=== PATIENT | male | born 1990 | race Caucasian/White ===

== ENCOUNTER 2018-08-12 13:16 | Observation (INO) ==
--- NOTE | 2018-08-12 13:29 | ED ---
HPI General Chief Complaint: Chest Pain Stated Complaint: Medical Time Seen by Provider: 08/12/18 13:21 Source: patient Mode of arrival: EMS Limitations: no limitations History of Present Illness 28-year-old male presents by ambulance after he was working outside at a [employer] with his job. He got lightheaded and short of breath and when he sat down in the truck he felt like he was about to pass out but did not lose consciousness. He denies any pain or other complaints at this time. He denies prior history of this. He denies specific modifying factors. Onset (ago): minute(s) Context: Reports occurred during exertion Associated symptoms: Reports denies other symptoms Related Data Home Medications Medication Instructions Recorded Confirmed No Known Home Medications 08/12/18 08/12/18 Allergies Allergy/AdvReac Type Severity Reaction Status Date / Time No Known Allergies Allergy Verified 08/12/18 13:19 Review of Systems ROS: all other systems reviewed are negative [facility] Medical History Medical History Patient denies medical problems (Acute) Surgical History Surgical History No history of previous surgery (Acute) Social History Social History Substance History: No History of Abuse Smoking Status: Never smoker How Often Do You Have a Drink Containing Alcohol: Never Recent Travel in [facility] within the Last 8 Weeks: No Recent Out of Country Travel within the Last 8 Weeks: No Immunization History Tetanus Immunization: <5 Years Exam Narrative Exam Narrative: GENERAL: 28 y/o male in no apparent distress SKIN: Focused skin assessment warm/dry. HEAD: Atraumatic. Normocephalic. EYES: Pupils equal and round. No scleral icterus. No injection or drainage. ENT: No nasal bleeding or discharge. Mucous membranes pink and moist. NECK: Trachea midline. No JVD. CARDIOVASCULAR: Regular rate and rhythm. RESPIRATORY: No accessory muscle use. Clear to auscultation. Breath sounds equal bilaterally. GASTROINTESTINAL: Abdomen soft, non-tender, nondistended. MUSCULOSKELETAL: No obvious deformities. No clubbing. No cyanosis. No edema. NEUROLOGICAL: Awake and alert. No obvious cranial nerve deficits. Motor grossly within normal limits. Normal speech. PSYCHIATRIC: Appropriate mood and affect; insight and judgment normal. Course Reevaluation(s) Reevaluation #1: On recheck patient states he is starting to feel better. Episode was likely related to exertion in the heat but given second episode while he was in air conditioning where he got short of breath and felt lightheaded, offered chest pain center observation for further cardiac workup and he agrees to this plan of care. No active chest pain. Initial Documented Vital Signs Pulse Rate 97 H 08/12/18 13:19 Respiratory Rate 14 08/12/18 13:19 Blood Pressure 178/77 H 08/12/18 13:19 Pulse Oximetry 97 08/12/18 13:19 Last Documented Vital Signs Pulse Rate 100 H 08/12/18 13:30 Respiratory Rate 17 08/12/18 13:30 Blood Pressure 145/56 H 08/12/18 13:30 Pulse Oximetry 95 08/12/18 13:30 Medical Decision Making MDM Narrative Medical decision making narrative: Patient arrived with stable vitals with near syncopal episode. EKG shows mild ST elevation anteriorly so we will check further testing although this could be early repolarization and clinically monitor. No active chest pain Medical Screen Exam Complete: Yes Emergency Medical Condition: Yes Differential Diagnosis Differential Diagnosis: Vasovagal, anemia, renal failure, PE, heat exhaustion Lab Data Result diagrams: 08/12/18 13:26 08/12/18 13:26 Lab Results 08/12/18 08/12/18 08/12/18 Range/Units 13:26 13:26 13:26 WBC 7.8 (4.0-11.0) th/mm3 RBC 5.18 (4.50-5.90) mil/mm3 Hgb 16.2 (13.0-17.0) gm/dL Hct 48.2 (39.0-51.0) % MCV 93.0 (80.0-100.0) fL MCH 31.3 (27.0-34.0) pg MCHC 33.6 (32.0-36.0) % RDW 12.8 (11.6-17.2) % Plt Count 207 (150-450) th/mm3 MPV 8.1 (7.0-11.0) fL Neut % (Auto) 57.0 (16.0-70.0) % Lymph % (Auto) 31.4 (9.0-44.0) % [place] % (Auto) 10.0 H (0.0-8.0) % Eos % (Auto) 1.1 (0.0-4.0) % Baso % (Auto) 0.5 (0.0-2.0) % Neut # (Auto) 4.4 (1.8-7.7) th/mm3 Lymph # (Auto) 2.4 (1.0-4.8) th/mm3 [place] # (Auto) 0.8 (0.0-0.9) th/mm3 Eos # (Auto) 0.1 (0.0-0.4) th/mm3 Baso # (Auto) 0.0 (0.0-0.2) th/mm3 WBC Differential . Differential Comment Auto diff final PT 10.5 (9.8-11.6) sec INR 1.0 Ratio APTT 20.3 L (24.3-30.1) sec D-Dimer Quant (PE/DVT) 0.27 (0.00-0.50) mg/L FEU Sodium 142 (136-145) meq/L Potassium 4.2 (3.5-5.1) meq/L Chloride 109 H (98-107) meq/L Carbon Dioxide 20.1 L (21.0-32.0) meq/L Anion Gap 13 (5-15) meq/L BUN 19 H (7-18) mg/dL Creatinine 1.29 (0.60-1.30) mg/dL Estimated GFR 65 L (>89) mL/min Random Glucose 114 H (74-106) mg/dL Calcium 8.3 L (8.5-10.1) mg/dL Magnesium 2.6 H (1.5-2.5) mg/dL Total Bilirubin 0.8 (0.2-1.0) mg/dL AST 36 (15-37) U/L ALT 65 (12-78) U/L Alkaline Phosphatase 38 L (45-117) U/L Total Creatine Kinase 135 (39-308) U/L CK-MB (CK-2) Less than 1.0 (0.5-3.6) ng/mL Troponin I Less than 0.02 L (0.02-0.05) ng/mL Total Protein 7.0 (6.4-8.2) g/dL Albumin 3.6 (3.4-5.0) g/dL Imaging Data Radiologist's impression: Chest X-Ray 08/12/18 13:22 CONCLUSION: Negative examination. Discharge Plan Discharge Disposition Patient Disposition: 28 Still Patient Discharge Details Diagnosis: Near syncope Physicians Team ED Provider: Kelli Solis Primary Care Provider: Luis Eduardo Ogden Attending Provider: Wyatt Galvez ED Status: Admitted Observation Patient
[2018-08-12] MEDS ORDERED: Sod Chloride 0.9% Inj 1,000 ML IV.CONT SCH (13:30)
[2018-08-12 13:39] LABS: Baso % (Auto) 0.5 % (0.0-2.0); Eos # (Auto) 0.1 th/mm3 (0.0-0.4); Eos % (Auto) 1.1 % (0.0-4.0); Hematocrit 48.2 % (39.0-51.0); Hemoglobin 16.2 gm/dL (13.0-17.0); Lymph # (Auto) 2.4 th/mm3 (1.0-4.8); Lymph % (Auto) 31.4 % (9.0-44.0); Mean Corpuscular HGB Conc 33.6 % (32.0-36.0); Mean Corpuscular Hemoglobin 31.3 pg (27.0-34.0); Mean Platelet Volume 8.1 fL (7.0-11.0); Mono # (Auto) 0.8 th/mm3 (0.0-0.9); Neut # (Auto) 4.4 th/mm3 (1.8-7.7); Platelet Count 207 th/mm3 (150-450); Red Blood Count 5.18 mil/mm3 (4.50-5.90); Red Cell Distribution Width 12.8 % (11.6-17.2); White Blood Count 7.8 th/mm3 (4.0-11.0)
--- NOTE | 2018-08-12 13:49 | XR ---
EXAM DATE: 08/12/2018 1:22 PM EDT AGE/SEX: 28 years / Male INDICATIONS: Patient had syncopal episode at work. CLINICAL DATA: This is the patient's initial encounter. Patient reports that signs and symptoms have been present for 1 day and indicates a pain score of 3/10. MEDICAL/SURGICAL HISTORY: None. None. COMPARISON: No prior exams available for comparison. FINDINGS: A single AP view of the chest demonstrates the lungs to be symmetrically aerated without evidence of mass, infiltrate or effusion. The cardiomediastinal contours are unremarkable. Osseous structures a re intact. CONCLUSION: Negative examination. Electronically signed by: Usha Ch MD 08/12/2018 1:47 PM EDT
[2018-08-12 13:55] LABS: Alanine Aminotransferase 65 U/L (12-78); Albumin 3.6 g/dL (3.4-5.0); Anion Gap 13 meq/L (5-15); Aspartate Aminotransferase 36 U/L (15-37); Blood Urea Nitrogen 19 mg/dL (7-18); Calcium 8.3 mg/dL (8.5-10.1); Carbon Dioxide 20.1 meq/L (21.0-32.0); Chloride 109 meq/L (98-107); Glomerular Filtration Rate 65 mL/min (>89); Glucose,Random 114 mg/dL (74-106); Magnesium 2.6 mg/dL (1.5-2.5); Sodium 142 meq/L (136-145)
[2018-08-12 13:56] LABS: Potassium 4.2 meq/L (3.5-5.1)
[2018-08-12 14:02] LABS: D-Dimer 0.27 mg/L FEU (0.00-0.50); Prothrombin Time 10.5 sec (9.8-11.6)
[2018-08-12 14:03] LABS: Activated Partial Thrombo Time 20.3 sec (24.3-30.1)
[2018-08-12 14:17] LABS: Alkaline Phosphatase 38 U/L (45-117); Creatine Kinase 135 U/L (39-308)
[2018-08-12] MEDS ORDERED: Acetaminophen 500 MG Tablet PO PRN (15:02)
--- NOTE | 2018-08-12 15:33 | P.HPCA ---
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 States they were pulling a fire truck with a rope. He did this 2 times back to back. Denied having any symptoms at the time. But shortly after he sat in a truck and then had a sudden onset sensation of feeling lightheaded, nauseous, diaphoretic and felt hard to breathe but not truly short of breath. States symptoms not last long. He was advised to come to ED for evaluation by her coworkers. He denies prior history of CAD. States is a non-smoker. Denies any type of discomforts. Specifically denies having any type of chest discomfort. Denies hypertension, hyperlipidemia, diabetes, and CAD. Lifetime non-smoker. Lifetime non-smoker. Rarely has alcohol. Occasional alcohol. Denies illicit drug use. Denies any family history of CAD. - Diagnosis (1) Lightheadedness Review of Systems General: Patient denies fevers, chills, and recent travel. HEENT: Patient denies headache, sore throat, difficulty swallowing. Cardiovascular: Has the chest discomfort as mentioned above. Denies sensation of heart beating rapidly or irregularly. No syncope. He was diaphoretic. He felt lightheaded. Respiratory: Denies actual short of breath but states it felt a little hard to breathe briefly. Denies inspirational chest discomfort. Denies coughing wheezing or hemoptysis. GI: He was nauseous. Patient denies vomiting, diarrhea, abdominal pain, bloody stools. Musculoskeletal: Patient denies joint pain or edema. Denies calf pain or edema. Neurovascular: Patient denies numbness, tingling, weakness in extremities. Denies headache. Endocrine: Denies polyuria and polydipsia. Hematologic: Denies easy bruising. Skin: Denies rash or itching. PMFSH - History History Provided By: Patient - Medical History Medical History: Medical History (Last Reviewed 08/12/18 @ 13:28 by Kelli Solis MD) Patient denies medical problems - Surgical History Surgical History: Surgical History (Last Reviewed 08/12/18 @ 13:28 by Kelli Solis MD) No history of previous surgery - Tobacco History Smoking Status: Never smoker - Alcohol History How Often Do You Have a Drink Containing Alcohol: Never - Substance Use History Substance History: No History of Abuse - Travel History Recent Travel in the [place] Within the Last 8 Weeks: No Recent Travel Out of the Country Within the Last 8 Weeks: No - Immunization History Tetanus Immunization: <5 Years Medications and Allergies Active Medications: Active Medications Acetaminophen (Tylenol) 500 mg PO Q6H PRN PRN Reason: pain scale 1-5 Hydrocodone Bitart/Acetaminophen ([place] 7.5/325) 1 tab PO Q6H PRN PRN Reason: pain scale 6-10 Aspirin (Aspirin) 325 mg PO DAILY ROMAN Clonidine HCl (Catapres) 0.1 mg PO Q6H PRN PRN Reason: SBP >165 OR DBP > 110 Sodium Chloride (Ns Inj) 1,000 mls @ 125 mls/hr IV.CONT .Q8H ROMAN Stop: 08/12/18 21:29 Last Admin: 08/12/18 13:30 Dose: 125 mls/hr Ondansetron HCl (Zofran Inj) 4 mg IV.PUSH Q6H PRN PRN Reason: NAUSEA Pantoprazole Sodium (Protonix) 40 mg PO DAILY ROMAN Sodium Chloride (Ns Flush) 2 ml IV.FLUSH BID ROMAN Sodium Chloride (Ns Flush) 2 ml IV.FLUSH PRN PRN PRN Reason: FLUSH AFTER USING IV ACCESS Allergies Allergy/AdvReac Type Severity Reaction Status Date / Time No Known Allergies Allergy Verified 08/12/18 13:19 Home Medications Medication Instructions Recorded Confirmed Type No Known Home Medications 08/12/18 08/12/18 History Exam Vital signs: Vital Signs 08/12/18 13:19 08/12/18 13:30 Pulse Rate 97 H 100 H Respiratory Rate 14 17 Blood Pressure 178/77 H 145/56 H Pulse Oximetry 97 95 Narrative: GENERAL: This is a well-nourished, well-developed patient, in no apparent distress. Patient speaks in clear complete sentences. Patient is pleasant. HEENT: Head is atraumatic and normocephalic. Neck is supple without lymphadenopathy and trachea is midline. No JVD or carotid bruits. CARDIOVASCULAR: Regular rate and rhythm without murmurs, gallops, or rubs. RESPIRATORY: Clear to auscultation. Breath sounds equal bilaterally. No wheezes , rales, or rhonchi. Chest wall is nontender. No use of accessory muscles. GASTROINTESTINAL: Abdomen is nontender, nondistended. Abdomen soft. No obvious pulsatile mass or bruit. No CVA tenderness. Strong femoral pulses bilaterally. Normal bowel sounds in all quadrants. MUSCULOSKELETAL: Patient is moving upper and lower extremities freely. No calf tenderness or edema, no Homans sign. Strong pulses in upper and lower extremities. NEUROLOGICAL: Patient is alert and oriented. Cranial nerves 2-12 are grossly intact. No focal deficits and speech is clear. SKIN: No rash and turgor is normal. Results 08/12/18 13:26 08/12/18 13:26 Cardiac Enzymes 08/12/18 Range/Units 13: AST 36 (15-37) U/L CK-MB (CK-2) Less than 1.0 (0.5-3.6) ng/mL Troponin I Less than 0.02 L (0.02-0.05) ng/mL Coagulation 08/12/18 Range/Units 13:26 PT 10.5 (9.8-11.6) sec APTT 20.3 L (24.3-30.1) sec CBC 08/12/18 Range/Units 13:26 WBC 7.8 (4.0-11.0) th/mm3 RBC 5.18 (4.50-5.90) mil/mm3 Hgb 16.2 (13.0-17.0) gm/dL Hct 48.2 (39.0-51.0) % Plt Count 207 (150-450) th/mm3 Neut # (Auto) 4.4 (1.8-7.7) th/mm3 Lymph # (Auto) 2.4 (1.0-4.8) th/mm3 [place] # (Auto) 0.8 (0.0-0.9) th/mm3 Eos # (Auto) 0.1 (0.0-0.4) th/mm3 Baso # (Auto) 0.0 (0.0-0.2) th/mm3 Comprehensive Metabolic Panel 08/12/18 Range/Units 13:26 Sodium 142 (136-145) meq/L Potassium 4.2 (3.5-5.1) meq/L Chloride 109 H (98-107) meq/L Carbon Dioxide 20.1 L (21.0-32.0) meq/L BUN 19 H (7-18) mg/dL Creatinine 1.29 (0.60-1.30) mg/dL Calcium 8.3 L (8.5-10.1) mg/dL AST 36 (15-37) U/L ALT 65 (12-78) U/L Alkaline Phosphatase 38 L (45-117) U/L Total Protein 7.0 (6.4-8.2) g/dL Albumin 3.6 (3.4-5.0) g/dL - Imaging and Cardiology Imaging: Impressions Chest X-Ray 08/12/18 13:22 CONCLUSION: Negative examination. EKG interpretations - EKG EKG shows: sinus rhythm (Initial EKG is sinus rhythm rate [address] segment depressions or elevations.) Caprini VTE Risk Assessment Caprini VTE Risk Assessment: No/Low Risk (score <= 1) Caprini Risk Assessment Model: Point Value = 1 Point Value = 2 Point Value = 3 Point Value = 5 Age 41-60 Minor surgery BMI > 25 kg/m2 Swollen legs Varicose veins or History of unexplained or recurrent spontaneous Oral contraceptives or hormone replacement Sepsis (< 1 month) Serious lung disease, including pneumonia (< 1 month) Abnormal pulmonary function Acute myocardial infarction Congestive heart failure (< 1 month) History of inflammatory bowel disease Medical patient at bed rest Age 61-74 Arthroscopic surgery Major open surgery (> 45 min) Laparoscopic surgery (> 45 min) Malignancy Confined to bed (> 72 hours) Immobilizing plaster cast Central venous access Age >= 75 History of VTE Family history of VTE Factor V Leiden Prothrombin [id number] Lupus anticoagulant Anticardiolipin antibodies Elevated serum homocysteine Heparin-induced thrombocytopenia Other congenital or acquired thrombophilia Stroke (< 1 month) Elective arthroplasty Hip, pelvis, or leg fracture Acute spinal cord injury (< 1 month) Prophylaxis Regimen: Total Risk Factor Score Risk Level Prophylaxis Regimen 0-1 Low Early ambulation 2 Moderate Order ONE of the following: *Sequential Compression Device (SCD) *Heparin 5000 units SQ BID 3-4 Higher Order ONE of the following medications: *Heparin 5000 units SQ TID *Enoxaparin/Lovenox 40 mg SQ daily (WT < 150 kg, CrCl > 30 mL/min) *Enoxaparin/Lovenox 30 mg SQ daily (WT < 150 kg, CrCl > 10-29 mL/min) *Enoxaparin/Lovenox 30 mg SQ BID (WT < 150 kg, CrCl > 30 mL/min) AND/OR *Sequential Compression Device (SCD) 5 or more Highest Order ONE of the following medications: *Heparin 5000 units SQ TID (Preferred with Epidurals) *Enoxaparin/Lovenox 40 mg SQ daily (WT < 150 kg, CrCl > 30 mL/min) *Enoxaparin/Lovenox 30 mg SQ daily (WT < 150 kg, CrCl > 10-29 mL/min) *Enoxaparin/Lovenox 30 mg SQ BID (WT < 150 kg, CrCl > 30 mL/min) AND *Sequential Compression Device (SCD) Assessment and Plan - Assessment (1) Lightheadedness Code(s): R42 - Dizziness and giddiness Status: Acute - Plan * Lightheadedness: Patient denies having chest discomforts. He will stay in the chest pain center overnight, he will have serial cardiac enzymes and EKGs for ruling out purposes. Dr. Galvez has seen the first EKG and states that is normal without any signs of any acute ST changes. His symptoms are probably related to either vasovagal or possible dehydration from heat exposure. He had 1 L of IV fluids in route and is getting a second liter of fluids at this time. We will repeat a BMP in the morning. Likely patient will be discharged home after being evaluated by Dr. Galvez of cardiology in the chest pain center with instructions to follow-up PCP and return to ED for interval issues. Patient is stable at this time. He is agreeable to this plan.
[2018-08-12 16:15] LABS: Creatine Kinase 116 U/L (39-308)
[2018-08-12 18:22] LABS: Creatine Kinase 91 U/L (39-308)
[2018-08-13 07:32] VITALS: BP 117/62; PULSE 54; RESP 20; TEMP 97.7; O2SAT 96
[2018-08-13 08:28] LABS: Calcium 8.5 mg/dL (8.5-10.1); Carbon Dioxide 22.7 meq/L (21.0-32.0)
[2018-08-13 08:32] LABS: Potassium 5.2 meq/L (3.5-5.1)
[2018-08-13] MEDS ORDERED: Aspirin 325 MG Tablet PO SCH (09:00)
--- NOTE | 2018-08-13 15:08 | ECG ---
Date Performed: 08/12/2018 Time Performed: 18:05:01 PTAGE: 28 years EKG: Sinus rhythm NORMAL ECG PREVIOUS TRACING : 08/12/2018 15.33 Since previous tracing, no significant change noted DOCTOR: Wyatt Galvez Interpretating Date/Time 08/13/2018 15:08:23
--- NOTE | 2018-08-13 15:11 | ECG ---
Date Performed: 08/12/2018 Time Performed: 15:33:21 PTAGE: 28 years EKG: Sinus rhythm WITH SINUS ARRHYTHMIA NORMAL ECG PREVIOUS TRACING : 08/12/2018 13.19 Since previous tracing, no significant change noted DOCTOR: Wyatt Galvez Interpretating Date/Time 08/13/2018 15:10:51
--- NOTE | 2018-08-13 15:13 | ECG ---
Date Performed: 08/12/2018 Time Performed: 13:19:35 PTAGE: 28 years EKG: Sinus rhythm normal ECG. NO PREVIOUS TRACING DOCTOR: Wyatt Galvez Interpretating Date/Time 08/13/2018 15:12:24
== END 2018-08-13 11:22 | disposition home or self-care (01) ==
LOC: EDBD → NEDA 13:16 → NEPC 13:16 → NEPGCP 15:51